=== PATIENT | male | born 1995 | race Caucasian/White ===

== ENCOUNTER → 2019-03-22 | Outpatient (CLI) | payer OTHER ==
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
== END | disposition home or self-care (01) ==
LOC: RADXRMAIN 16:58
PROVIDERS: ATTEND Emergency Medicine
DX: S93.401A Sprain of unspecified ligament of right ankle, initial encounter (principal)

== ENCOUNTER → 2019-03-28 | Outpatient (CLI) | payer OTHER ==
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
== END | disposition home or self-care (01) ==
LOC: RADMRIMAIN 06:17
PROVIDERS: ATTEND Emergency Medicine
DX: M25.471 Effusion, right ankle (principal); S00.33XD Contusion of nose, subsequent encounter

== ENCOUNTER → 2019-12-18 | Outpatient (CLI) | payer OTHER | END | disposition home or self-care (01) | LOC: LABWHC1 13:03 | PROVIDERS: ATTEND Internal Medicine | DX: Z03.89 Encounter for observation for other suspected diseases and conditions ruled out (principal) | CPT/HCPCS: U0003; C9803 ==

== ENCOUNTER 2020-08-21 22:19 | Emergency (ER) | payer OTHER ==
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
[2020-08-21 23:01] VITALS: BP 145/92; PULSE 97; RESP 16; TEMP 98.9
[2020-08-22 20:39] LABS: Hepatitis B Surface Antibody Reactive (Non-Reactive); Hepatitis B Surface Antigen Non-Reactive (Non-Reactive); Hepatitis C IgG Antibody Non-Reactive (Non-Reactive)
[2020-08-24 15:08] LABS: HIV 2 AB Non-Reactive (Non-Reactive); HIV AB P24 Non-Reactive (Non-Reactive); HIV P24 AG Non-Reactive (Non-Reactive)
== END 2020-08-21 23:34 | disposition home or self-care (01) ==
LOC: EC 22:19 → SUPCPDRO 22:19 → EC 23:34
DX: Z20.5 Contact with and (suspected) exposure to viral hepatitis (principal)
CPT/HCPCS: 36415; 86706; 86803; 87340; 87390; 99283

== ENCOUNTER 2021-01-09 20:03 | Emergency (ER) | payer OTHER ==
[2021-01-09 20:13] VITALS: BP 153/90; PULSE 92; RESP 19; TEMP 99.1
--- NOTE | 2021-01-09 20:28 | ED ---
Fall HPI - General Chief Complaint: Fall Stated Complaint: [facility] R knee injury Time Seen by Provider: 01/09/21 20:16 Source: patient Mode of arrival: ambulatory - History of Present Illness Initial Comments: 25 year-old male patient presents to the emergency department for evaluation of right knee injury. 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 States he fell onto a cement curb. States he was able to get up and walk. Reports mild discomfort. States he feels clicking when when bends it or straightens it. Denies any pain radiating down the leg. Denies numbness or tingling. Denies denies any head, neck, or back injury. Denies taking any pain medication. Denies any other injuries or concerns. - Related Data Allergies Allergy/AdvReac Type Severity Reaction Status Date / Time amoxicillin AdvReac Rash/Hives Verified 01/09/21 20:13 Review of Systems ROS Statement: Those systems with pertinent positive or pertinent negative responses have been documented in the HPI. ROS Other: All systems not noted in ROS Statement are negative. Past Medical History Past Medical History: No Reported History History of Any Multi-Drug Resistant Organisms: None Reported Past Surgical History: No Surgical Hx Reported Past Psychological History: No Psychological Hx Reported Smoking Status: Never smoker Past Alcohol Use History: Occasional Past Drug Use History: None Reported General Exam General appearance: alert, in no apparent distress, other (This is a well developed, well nourished adult male in no acute distress. V/S upon presentation are temp 99.1, pulse 92, resp 19, BP 153/90, Pulse Ox 98% on room air. ) Respiratory exam: Present: normal lung sounds bilaterally. Absent: respiratory distress, wheezes, rales, rhonchi, stridor Cardiovascular Exam: Present: regular rate, normal rhythm, normal heart sounds. Absent: systolic murmur, diastolic murmur, rubs, gallop, clicks Extremities exam: Present: full ROM (full flexion and extension), tenderness (Right medial knee), normal capillary refill, other (Erythema, mild swelling noted to the right medial knee. Skin is otherwise pink, warm, dry. Cap refill <3 seconds. No laxity or pain with valgus or varus maneuvers. Negative drawer tests.). Absent: normal inspection, pedal edema, joint swelling, calf tenderness Neurological exam: Present: alert, oriented X3, CN II-XII intact Psychiatric exam: Present: normal affect, normal mood Skin exam: Present: warm, dry, intact, normal color. Absent: rash Course Vital Signs 01/09/21 20:10 Temperature 99.1 F Pulse Rate 92 Respiratory 19 Rate Blood Pressure 153/90 O2 Sat by Pulse 98 Oximetry Medical Decision Making - Medical Decision Making 25-year-old male patient presents to the emergency department today for ev aluation of right knee pain after an injury. Physical examination did reveal erythema and soft tissue swelling over the medial aspect of the knee. Had no laxity or pain with this or varus maneuvers. Negative drawer test. Neurovascular status is intact. X-ray shows no evidence for fracture or effusion. He'll be discharged to follow-up with his primary care physician, employee health services as needed. Return parameters were discussed in detail. He verbalizes understanding and agrees with this plan. My attending is Dr. Robbins. - Radiology Data Radiology results: report reviewed, image reviewed 3 views of the right knee are obtained. Report was reviewed in its entirety. Impression by Dr. Flores shows negative right knee exam. No fracture. Disposition Clinical Impression: Contusion of right knee Disposition: HOME SELF-CARE Condition: Good Instructions (If sedation given, give patient instructions): Contusion in Adults (ED), Knee Pain (ED) Additional Instructions: Apply ice to the painful area. Follow-up with employee health services for further evaluation especially if pain is not improved after 1 week. Return for any new, worsening, or concerning symptoms. Is patient prescribed a controlled substance at d/c from ED?: No Referrals: Silvestre Brown MD [Primary Care Provider] - 1-2 days Time of Disposition: 20:59
--- NOTE | 2021-01-09 20:49 | XR ---
EXAMINATION TYPE: XR knee complete RT DATE OF EXAM: 01/09/2021 COMPARISON: NONE HISTORY: Knee pain TECHNIQUE: 3 views FINDINGS: I see no fracture nor dislocation. Joint spaces are normal. There are no pathologic calcifi cations. IMPRESSION: Negative right knee exam. No fracture
== END 2021-01-09 21:09 | disposition home or self-care (01) ==
LOC: EC 20:03
DX: S80.01XA Contusion of right knee, initial encounter (principal); Z88.0 Allergy status to penicillin; W01.0XXA Fall on same level from slipping, tripping and stumbling without subsequent striking against object, initial encounter
CPT/HCPCS: 99283